=== PATIENT | male | born 1995 | race Caucasian/White ===

== ENCOUNTER → 2018-01-19 | Outpatient (CLI) | payer BC ==
--- NOTE | 2018-01-19 15:50 | Diagnostic Imaging Report ---
EXAMINATION: MRI of the brain without contrast. HISTORY: Severe headaches, worsening for the last 3 weeks COMPARISON: None. TECHNIQUE: Sagittal T2; axial DWI, T2, FLAIR, T1-IR, T2 gradient echo; coronal FLAIR. IMAGE QUALITY: Adequate. FINDINGS: Parenchyma: 1. No abnormal signal intensity 2. No mass, hemorrhage, acute or chronic infarcts. Skull: Unremarkable. Vessels: Expected flow voids present in the major arteries and dural sinuses. Extra-axial spaces: No abnormal signal intensity or mass effect. Brain volume: Within normal limits for age. Ventricles: No hydrocephalus or displacement. Foramen magnum: Unremarkable. Sella: Unremarkable. Paranasal / mastoid sinuses: No significant inflammatory disease. Small retention cyst in the right maxillary sinus, otherwise clear. IMPRESSION: No intracranial abnormalities. The findings were discussed with the requesting physician Dr. Urbina 01/19/2018 at 3:45 PM. Signed by: Dr. Shanda Boo M.D. on 01/19/2018 3:47 PM
== END ==
LOC: MRI 14:55
PROVIDERS: ATTEND Family Medicine
DX: G44.52 New daily persistent headache (NDPH) (principal); R42 Dizziness and giddiness
CPT/HCPCS: 70551